=== PATIENT | male | born 1990 | race Hispanic/Latino ===

== ENCOUNTER 2023-04-20 14:49 | Emergency (ER) | payer SELFPAY ==
[2023-04-20] MEDS ORDERED: LIDOCAINE 1% MPF 5 ML VIAL ONE (15:34)
[2023-04-20] MEDS ORDERED: CEPHALEXIN 250 MG CAP ONE (15:34)
--- NOTE | 2023-04-20 15:36 | ER ---
Nurse's Notes [facility] Name: Justin Goddard Age: 32 yrs Sex: Male : 1990 Arrival Date: 04/20/2023 Time: 14:49 Bed 19 Private MD: Diagnosis: Cutaneous abscess of neck Presentation: 04/20 15:05 Chief complaint: Patient states: abscess to back of neck x 2 days. Coronavirus screen: ss Client denies travel out of the [place] in the last 14 days. Ebola Screen: Patient denies exposure to infectious person. Patient denies travel to an Ebola-affected area in the 21 days before illness onset. Initial Sepsis Screen: Does the patient meet any 2 criteria? No. Patient's initial sepsis screen is negative. Does the patient have a suspected source of infection? No. Patient's initial sepsis screen is negative. Risk Assessment: Do you want to hurt yourself or someone else? Patient reports no desire to harm self or others. Onset of symptoms was April 18, 2023. 15:05 Method Of Arrival: Ambulatory ss 15:05 Acuity: DAVEY 4 Triage Assessment: 15:30 General: Appears in no apparent distress. Behavior is calm. Pain: Complains of pain in db back of neck. Historical: - Allergies: 15:06 No Known Allergies; ss - Immunization history:: Client reports receiving the 2nd dose of the Covid vaccine. - Social history:: Smoking status: Patient reports the use of cigarette tobacco products, denies chronic smoking, but will smoke occasionally. Screenin:[address] [facility] ED Fall Risk Assessment (Adult) History of falling in the last 3 months, db including since admission No falls in past 3 months (0 pts) Confusion or Disorientation No (0 pts) Intoxicated or Sedated No (0 pts) Impaired Gait No (0 pts) Mobility Assist Device Used No (0 pt) Altered Elimination No (0 pt) Score/Fall Risk Level 0 - 2 = Low Risk Oriented to surroundings, Maintained a safe environment. Abuse screen: Denies threats or abuse. Denies injuries from another. Nutritional screening: No deficits noted. Tuberculosis screening: No symptoms or risk factors identified. Assessment: 15:42 Reassessment: Patient appears in no apparent distress at this time. Patient and/or db family updated on plan of care and expected duration. Pain level reassessed. Patient is alert, oriented x 3, equal unlabored respirations, skin warm/dry/pink. General: Appears in no apparent distress. comfortable, Behavior is calm, cooperative. 15:42 Pain: Complains of pain in back of neck. Neuro: Level of Consciousness is awake, alert, db obeys commands, Oriented to person, place, time, situation. Vital Signs: 15:05 BP 126 / 79; Pulse 107; Resp 16; Temp 98.8(O); Pulse Ox 98% on R/A; Weight 104.33 kg; ss Height 5 ft. 8 in. ; Pain 2/10; 15:05 Body Mass Index 34.46 (104.33 kg, 174 cm) ss 15:05 Pain Scale: Adult ss ED Course: 14:52 Patient arrived in ED. mr 15:01 [facility]C [facility] kb 15:01 Caleb Betancur MD is Attending Physician. kb 15:06 Triage completed. ss 15:06 Arm band placed on right wrist. ss 15:23 Estrella Herndon, RN is Primary Nurse. db 15:41 Assist provider with I \T\ D: of an abscess on Set up I\T\D tray. Performed by Sarah MACHUCA Patient tolerated well. 15:46 Patient has correct armband on for positive identification. Bed in low position. Call db light in reach. Side rails up X 1. 15:46 Patient did not have IV access during this emergency room visit. db Administered Medications: 15:25 Drug: Lidocaine Infiltration (1 %) 1 vials {Note: given to provider.} Volume: 5 ml; db Route: Infiltration; 15:47 Follow up: Response: No adverse reaction db 15:25 Drug: Cephalexin PO 500 mg Route: PO; db 15:47 Follow up: Response: No adverse reaction db Medication: 15:47 VIS not applicable for this client. db Outcome: 15:36 Discharge ordered by . kb 15:46 Discharged to home ambulatory, with family. db 15:46 Condition: stable 15:46 Discharge instructions given to patient, family, Instructed on discharge instructions, follow up and referral plans. Prescriptions given X 1. 15:47 Patient left the ED. db Signatures: Sarah Cotto FNP-C FNP-Ckb SawyerTerese miles Shelby, RN RN ss Yanick, Estrella, RN RN db
--- NOTE | 2023-04-20 15:36 | EDPHYS ---
Physician Documentation [facility] Name: Justin Goddard Age: 32 yrs Sex: Male : 1990 Arrival Date: 04/20/2023 Time: 14:49 Bed 19 Private MD: ED Physician Caleb Betancur HPI: 04/20 15:07 This 32 yrs old Male presents to ER via Ambulatory with complaints of Abscess. kb 15:07 The patient presents with an abscess of the left posterior aspect of neck. Description: kb draining, erythematous, swollen, warm. Onset: The symptoms/episode began/occurred 2 day(s) ago. Possible cause(s): unknown. Associated signs and symptoms: Pertinent positives: drainage, erythema, swelling, Pertinent negatives: foreign body sensation, fever, headache, nausea, shortness of breath, vomiting. Modifying factors: the symptoms are alleviated by nothing, the symptoms are aggravated by pressure, squeezing the lesion and expressing the contents, touching. Severity of symptoms: At their worst the symptoms were moderate, in the emergency department the symptoms are unchanged. The patient has not experienced similar symptoms in the past. The patient has not recently seen a physician. Historical: - Allergies: 15:06 No Known Allergies; ss - Immunization history:: Client reports receiving the 2nd dose of the Covid vaccine. - Social history:: Smoking status: Patient reports the use of cigarette tobacco products, denies chronic smoking, but will smoke occasionally. ROS: 15:06 Constitutional: Negative for fever, chills, and weight loss. kb 15:06 Skin: Positive for abscess, of the left posterior aspect of neck. 15:06 All other systems are negative. Exam: 15:06 Constitutional: This is a well developed, well nourished patient who is awake, alert, kb and in no acute distress. Head/Face: Normocephalic, atraumatic. ENT: Moist Mucous membranes Cardiovascular: Regular rate and rhythm with a normal S1 and S2. No gallops, murmurs, or rubs. No pulse deficits. Respiratory: Respirations even and unlabored. No increased work of breathing. Talking in full sentences MS/ Extremity: Pulses equal, no cyanosis. Neurovascular intact. Full, normal range of motion. Neuro: Awake and alert, GCS 15, oriented to person, place, time, and situation. Moves all extremities. Normal gait. 15:06 Skin: abscess, that is moderate sized, of the left posterior aspect of neck, with drainage, with fluctuance, with induration. Vital Signs: 15:05 BP 126 / 79; Pulse 107; Resp 16; Temp 98.8(O); Pulse Ox 98% on R/A; Weight 104.33 kg; ss Height 5 ft. 8 in. ; Pain 2/10; 15:05 Body Mass Index 34.46 (104.33 kg, 174 cm) ss 15:05 Pain Scale: Adult ss Procedures: 15:35 I \T\ D: Incision and drainage was performed for an abscess of the left posterior aspect kb of neck Prepped with Betadine, Anesthetized with 1 ml's 1% Lidocaine. Incised with #11 blade. Drained small amount purulent fluid. Dressing: sterile 4x4 gauze, the patient tolerated the procedure well. MDM: 15:00 Patient medically screened. bs3 15:04 Differential diagnosis: abscess, allergic reaction, cellulitis, insect bite. Data kb reviewed: vital signs, nurses notes. 15:06 Historians other than the Patient: Spouse/Significant Other: significant other. kb 15:35 Counseling: I had a detailed discussion with the patient and/or guardian regarding: the kb historical points, exam findings, and any diagnostic results supporting the discharge/admit diagnosis, the need for outpatient follow up, a family practitioner, to return to the emergency department if symptoms worsen or persist or if there are any questions or concerns that arise at home. 04/20 15:04 Order name: I\T\D Setup; Complete Time: 15:33 kb Administered Medications: 15:25 Drug: Lidocaine Infiltration (1 %) 1 vials {Note: given to provider.} Volume: 5 ml; db Route: Infiltration; 15:47 Follow up: Response: No adverse reaction db 15:25 Drug: Cephalexin PO 500 mg Route: PO; db 15:47 Follow up: Response: No adverse reaction db Disposition Summary: 04/20/23 15:36 Discharge Ordered Location: Home Condition: Stable Diagnosis - Cutaneous abscess of neck kb Followup: kb - With: Emergency Department - When: As needed - Reason: Worsening of condition Followup: kb - With: Private Physician - When: 2 - 3 days - Reason: Recheck today's complaints, Continuance of care, Re-evaluation by your physician Discharge Instructions: - Discharge Summary Sheet kb - Skin Abscess, [id number] kb - Incision and Drainage, Care After kb Forms: - Medication Reconciliation Form kb - Thank You Letter kb - Antibiotic Education kb - Prescription Opioid Use kb Prescriptions: - Cephalexin 500 mg Oral Capsule - take 1 capsule by ORAL route every 8 hours for 10 days; 30 capsule; Refills: 0, kb Product Selection Permitted Signatures: Sarah Cotto, STEFANIE-C MANAGER NURSING HOME-Denisse Chambers, MICHAEL RN ss Caleb Betancur MD MD bs3 Estrella Herndon, RN RN db
[2023-04-20 15:52] VITALS: BP 126/79; TEMP 98.8; O2SAT 98
== END 2023-04-20 15:47 | disposition home or self-care (01) ==
LOC: ER 14:49
PROC: 0H94XZZ Drainage of Neck Skin, External Approach (ICD-10-PCS; principal; 2023-04-20)
DX: L02.11 Cutaneous abscess of neck (principal)
CPT/HCPCS: 99283; J2001

== ENCOUNTER 2023-10-16 19:53 | Emergency (ER) | payer SELFPAY ==
[2023-10-16 21:41] LABS: Absolute Lymphocytes (CBC) 0.9 K/uL (0.7-4.9); Hematocrit 45.8 % (39.6-49.0); Lymphocytes % 20.1 % (15.3-44.8); MCV 83.7 fL (80-100); MPV 9.3 fL (7.6-11.3); Platelets 158 thou/uL (152-406); RBC Red Blood Cell Count 5.47 M/uL (4.33-5.43)
[2023-10-16] MEDS ORDERED: ONDANSETRON 4 MG/2 ML VIAL ONE (21:44)
[2023-10-16] MEDS ORDERED: NA CHLORIDE 0.9% 1,000 ML ONE (21:44)
[2023-10-16 21:53] LABS: Albumin 3.5 g/dL (3.4-5.0); Bilirubin Total 0.4 mg/dL (0.2-1.0); Potassium 3.7 mEq/L (3.5-5.1); Protein, Total 7.8 g/dL (6.4-8.2)
--- NOTE | 2023-10-16 21:59 | ER ---
Nurse's Notes [facility] Name: Justin Goddard Age: 33 yrs Sex: Male : 1990 Arrival Date: 10/16/2023 Time: 19:53 Bed DIS3 Private MD: Diagnosis: Nausea with vomiting, unspecified Presentation: 10/16 20:59 Chief complaint: Patient states: cough, fever, abdominal pain X2 days. vomiting and lg3 dizziness beginning this morning. Coronavirus screen: Client denies travel out of the [place] in the last 14 days. Client presents with at least one sign or symptom that may indicate coronavirus-19. Standard/surgical mask placed on the client. Ebola Screen: No symptoms or risks identified at this time. Initial Sepsis Screen: Does the patient meet any 2 criteria? No. Patient's initial sepsis screen is negative. Does the patient have a suspected source of infection? No. Patient's initial sepsis screen is negative. Risk Assessment: Do you want to hurt yourself or someone else? Patient reports no desire to harm self or others. Onset of symptoms was October 14, 2023. 20:59 Method Of Arrival: Ambulatory lg3 20:59 Acuity: DAVEY 3 lg3 Triage Assessment: 21:01 General: Appears in no apparent distress. uncomfortable, Behavior is calm, cooperative. lg3 Pain: Complains of pain in abdomen. EENT: No deficits noted. No signs and/or symptoms were reported regarding the EENT system. Neuro: No deficits noted. Calvo Agitation-Sedation Scale (RASS): 0 - Alert and Calm Level of Consciousness is awake, alert, obeys commands, Oriented to person, place, time, situation, Reports dizziness. Cardiovascular: No deficits noted. Capillary refill < 3 seconds Clubbing of nail beds is absent JVD is absent Patient's skin is warm and dry. Respiratory: No deficits noted. Airway is patent Respiratory effort is even, unlabored, Respiratory pattern is regular, symmetrical. GI: Reports lower abdominal pain, upper abdominal pain, cramping, nausea, vomiting. : No deficits noted. No signs and/or symptoms were reported regarding the genitourinary system. Derm: No deficits noted. No signs and/or symptoms reported regarding the dermatologic system. Skin is intact, is healthy with good turgor, Skin is dry, Skin is normal, Skin temperature is warm. Musculoskeletal: No deficits noted. No signs and/or symptoms reported regarding the musculoskeletal system. Circulation, motion, and sensation intact. Range of motion: intact in all extremities. Historical: - Allergies: 21:01 No Known Allergies; lg3 - Home Meds: 21:01 None [Active]; lg3 - PMHx: 21: None; lg3 - PSHx: 21:01 None; lg3 - Immunization history:: Adult Immunizations up to date. - Social history:: Smoking status: Patient reports the use of cigarette tobacco products, denies chronic smoking, but will smoke occasionally, Patient uses alcohol, occasionally. Patient/guardian denies using street drugs. Screenin:34 [facility] ED Fall Risk Assessment (Adult) Score/Fall Risk Level 0 - 2 = Low Risk. Abuse as6 screen: Denies threats or abuse. Denies injuries from another. Nutritional screening: No deficits noted. Tuberculosis screening: No symptoms or risk factors identified. Assessment: 21:34 General: see triage assessment . as6 Vital Signs: 20:59 BP 142 / 91; Pulse 94; Resp 17 S; Temp 98.8(O); Pulse Ox 99% on R/A; Weight 104.33 kg lg3 (R); Height 5 ft. 7 in. (R); 20:59 Body Mass Index 36.02 (104.33 kg, 170.18 cm) lg3 ED Course: 20:42 Patient arrived in ED. gm2 20:43 Santos Montes De Oca MD is Attending Physician. rt 21:01 Triage completed. lg3 21:01 Arm band placed on right wrist. lg3 21:28 Inserted saline lock: 20 gauge in left antecubital area, using aseptic technique. Blood as6 collected. 21:28 CBC with Diff Sent. as6 21:28 CMP Sent. as6 21:28 Lipase Sent. as6 21:34 Bed in low position. Call light in reach. as6 22:07 Provided Education on: follow up. as6 22:07 No provider procedures requiring assistance completed. IV discontinued, intact, as6 bleeding controlled, No redness/swelling at site. Pressure dressing applied. Administered Medications: 21:33 Drug: Ondansetron IVP 4 mg IVP once; over 2 minutes Route: IVP; Site: left antecubital; as6 22:06 Follow up: Response: No adverse reaction as6 21:33 Drug: NS 0.9% IV 1000 ml IV at 1 bolus Per protocol; 1000 mL bolus Route: IV; Rate: 1 as6 bolus; Site: left antecubital; 22:06 Follow up: Response: No adverse reaction; IV Status: Completed infusion; IV Intake: as6 1000ml Medication: 21:34 VIS not applicable for this client. as6 Intake: 22:06 IV: 1000ml; Total: 1000ml. as6 Outcome: 21:58 Discharge ordered by . rt 22:07 Discharged to home ambulatory, with significant other, as6 22:07 Condition: stable 22:07 Discharge instructions given to patient, Instructed on discharge instructions, follow up and referral plans. medication usage, Demonstrated understanding of instructions, follow-up care, medications, Prescriptions given X 2, 22:08 Patient left the ED. as6 Signatures: Frances Larose RN RN lg3 Teofilo Elias RN RN as6 Santos Montes De Oca MD MD rt Shara Gates gm2 Corrections: (The following items were deleted from the chart) 21:33 21:28 Inserted saline lock: 20 gauge in right antecubital area, using aseptic as6 technique. Blood collected. as6
--- NOTE | 2023-10-16 21:59 | EDPHYS ---
Physician Documentation [facility] Name: Justin Goddard Age: 33 yrs Sex: Male : 1990 Arrival Date: 10/16/2023 Time: 19:53 Bed DIS3 Private MD: ED Physician Santos Montes De Oca HPI: 10/16 22:00 This 33 yrs old Male presents to ER via Ambulatory with complaints of rt Nausea/Vomiting. 22:00 Patient presents to the ED with 2 days of intermittent nausea, vomiting, diarrhea, left rt upper quadrant pain. He states that he has had less of an appetite. Patient states that he has no abdominal pain currently, no nausea currently. States that he feels little bit lightheaded. Denies other acute complaints at this time, symptoms are moderate in severity, no other aggravating or alleviating factors.. Historical: - Allergies: 21: No Known Allergies; lg3 - Home Meds: 21:01 None [Active]; lg3 - PMHx: 21: None; lg3 - PSHx: 21:01 None; lg3 - Immunization history:: Adult Immunizations up to date. - Social history:: Smoking status: Patient reports the use of cigarette tobacco products, denies chronic smoking, but will smoke occasionally, Patient uses alcohol, occasionally. Patient/guardian denies using street drugs. ROS: 22:06 Constitutional: Negative for fever, chills, and weight loss, Cardiovascular: Negative rt for chest pain, palpitations, and edema, Respiratory: Negative for shortness of breath, cough, wheezing, and pleuritic chest pain, MS/Extremity: Negative for injury and deformity, Skin: Negative for injury, rash, and discoloration, Psych: Negative for depression, anxiety, suicide ideation, homicidal ideation, and hallucinations, 22:06 Abdomen/GI: Positive for abdominal pain, nausea, vomiting, and diarrhea, Exam: 22:06 Constitutional: This is a well developed, well nourished patient who is awake, alert, rt and in no acute distress. Head/Face: Normocephalic, atraumatic. Chest/axilla: Normal chest wall appearance and motion. Nontender with no deformity. No lesions are appreciated. Cardiovascular: Regular rate and rhythm with a normal S1 and S2. No gallops, murmurs, or rubs. Normal PMI, no JVD. No pulse deficits. Respiratory: Lungs have equal breath sounds bilaterally, clear to auscultation and percussion. No rales, rhonchi or wheezes noted. No increased work of breathing, no retractions or nasal flaring. Abdomen/GI: Soft, non-tender, with normal bowel sounds. No distension or tympany. No guarding or rebound. No evidence of tenderness throughout. Skin: Warm, dry with normal turgor. Normal color with no rashes, no lesions, and no evidence of cellulitis. MS/ Extremity: Pulses equal, no cyanosis. Neurovascular intact. Full, normal range of motion. Neuro: Awake and alert, GCS 15, oriented to person, place, time, and situation. Cranial nerves II-XII grossly intact. Motor strength 5/5 in all extremities. Sensory grossly intact. Cerebellar exam normal. Normal gait. Psych: Awake, alert, with orientation to person, place and time. Behavior, mood, and affect are within normal limits. Vital Signs: 20:59 BP 142 / 91; Pulse 94; Resp 17 S; Temp 98.8(O); Pulse Ox 99% on R/A; Weight 104.33 kg lg3 (R); Height 5 ft. 7 in. (R); 20:59 Body Mass Index 36.02 (104.33 kg, 170.18 cm) lg3 MDM: 21:11 Patient medically screened. rt 22:07 Differential diagnosis: Nonspecific abd pain, gastritis, pancreatitis, gastroenteritis. rt Data reviewed: vital signs, nurses notes, lab test result(s). Test considered but Not performed: CT: No focal abdominal tenderness, symptoms improving with IV hydration, do not believe that patient has acute surgical pathology such as cholecystitis, appendicitis. Stable for outpatient care, return precautions for worsening symptoms were discussed. Counseling: I had a detailed discussion with the patient and/or guardian regarding the historical points, exam findings, and any diagnostic results supporting the discharge/admit diagnosis, lab results, the need for outpatient follow up, to return to the emergency department if symptoms worsen or persist or if there are any questions or concerns that arise at home. Response to treatment: the patient's symptoms have resolved after treatment. 10/16 21:21 Order name: CBC with Diff; Complete Time: 21:53 rt 10/16 21:21 Order name: CMP; Complete Time: 21:53 rt 10/16 21:21 Order name: Lipase; Complete Time: 21:53 rt Administered Medications: 21:33 Drug: Ondansetron IVP 4 mg IVP once; over 2 minutes Route: IVP; Site: left antecubital; as6 22:06 Follow up: Response: No adverse reaction 21:33 Drug: NS 0.9% IV 1000 ml IV at 1 bolus Per protocol; 1000 mL bolus Route: IV; Rate: 1 as6 bolus; Site: left antecubital; 22:06 Follow up: Response: No adverse reaction; IV Status: Completed infusion; IV Intake: as6 1000ml Disposition Summary: 10/16/23 21:58 Discharge Ordered Notes: Location: Home rt Problem: new rt Symptoms: are resolved rt Condition: Stable rt Diagnosis - Nausea with vomiting, unspecified rt Followup: rt - With: Private Physician - When: 2 - 3 days - Reason: Discharge Instructions: - Discharge Summary Sheet rt - Viral Gastroenteritis, Adult rt Forms: - Medication Reconciliation Form rt - Thank You Letter rt - Antibiotic Education rt - Prescription Opioid Use rt - Patient Portal Instructions rt - Leadership Thank You Letter rt Prescriptions: - ondansetron 4 mg Oral Tablet,disintegrating - take 1 tablet ORAL route every 6 hours; 15 tablet; Refills: 0, Product rt Selection Permitted - dicyclomine 20 mg Oral tablet - take 1 tablet ORAL route every 6 hours; 15 tablet; Refills: 0, Product rt Selection Permitted Signatures: Dispatcher [employer] Frances Winston RN RN lg3 Teofilo Elias RN RN as6 Santos Montes De Oca MD MD rt
[2023-10-16 22:37] VITALS: BP 142/91; TEMP 98.8; O2SAT 99
== END 2023-10-16 22:08 | disposition home or self-care (01) ==
LOC: ER 19:53
DX: R11.2 Nausea with vomiting, unspecified (principal)
CPT/HCPCS: 36415; 80053; 83690; 85025; 96361; 96374; 99284; J2405; J7030